=== PATIENT | female | born 1985 | race African-American/Black ===

== ENCOUNTER 2019-10-30 15:18 | Emergency (ER) | payer OTHER ==
[~2019-10-30] VITALS: Ht 160 cm; Wt 63.5 kg
[2019-10-30] MEDS ORDERED: MOBIC7.5 MG PO (17:11)
[2019-10-30 17:12] VITALS: BP 146/86
== END 2019-10-30 17:12 | disposition home or self-care (01) ==
LOC: ER 15:18
DX: S67.190A Crushing injury of right index finger, initial encounter (principal); W10.8XXA Fall (on) (from) other stairs and steps, initial encounter; Y93.89 Activity, other specified; Y92.89 Other specified places as the place of occurrence of the external cause; Y99.9 Unspecified external cause status